=== PATIENT | female | born 2000 ===

== ENCOUNTER 2023-12-11 08:39 | Emergency (ER) | payer OTHER ==
[~2023-12-11] VITALS: Ht 170.2 cm; Wt 120.5 kg
[2023-12-11 09:38] VITALS: BP 130/78; TEMP 98.3
[2023-12-11] MEDS ORDERED: CRUTCHES MC (12:09)
[2023-12-11 12:49] VITALS: PULSE 97
== END 2023-12-11 12:49 | disposition home or self-care (01) ==
LOC: COL.ER 08:39
DX: S82.862A Displaced Maisonneuve's fracture of left leg, initial encounter for closed fracture (principal); W00.0XXA Fall on same level due to ice and snow, initial encounter

== ENCOUNTER 2024-05-13 08:30 | Outpatient (RCR) | payer OTHER ==
[~2024-05-13 08:30] MED LIST: CRUTCHES MC
== END 2024-05-17 | disposition home or self-care (01) ==
LOC: WSPT
DX: S82.892D Other fracture of left lower leg, subsequent encounter for closed fracture with routine healing (principal); S82.492D Other fracture of shaft of left fibula, subsequent encounter for closed fracture with routine healing; X58.XXXD Exposure to other specified factors, subsequent encounter

== ENCOUNTER 2024-06-05 08:15 | Outpatient (RCR) | payer OTHER | END 2024-06-16 | disposition home or self-care (01) | LOC: WSPT | DX: S82.402D Unspecified fracture of shaft of left fibula, subsequent encounter for closed fracture with routine healing (principal); S82.892D Other fracture of left lower leg, subsequent encounter for closed fracture with routine healing; X58.XXXD Exposure to other specified factors, subsequent encounter ==